=== PATIENT | female | born 1990 | race Caucasian/White ===

== ENCOUNTER 2021-08-01 09:00 | Day surgery (SDC) | payer OTHER ==
[2021-08-01] MEDS ORDERED: CEFAZOLIN 2 GM-D5W BAG** 2 GM/50 ML ML IV SCH (09:30)
[2021-08-01] MEDS ORDERED: Lactated Ringers 1,000 ML IV SCH (09:30)
[2021-08-01] MEDS ORDERED: CEFAZOLIN 2 GM-D5W BAG** 2 GM/50 ML ML IV ONE (09:54)
[2021-08-01] MEDS ORDERED: Lactated Ringers 1,000 ML IV ONE (09:54)
[2021-08-01] MEDS ORDERED: Versed 2 MG/2 ML Injection IV PRN (10:03)
[2021-08-01] MEDS ORDERED: SUBLIMAZE 100 MCG/2 ML ONE (10:21)
[2021-08-01] MEDS ORDERED: Xylocaine-Mpf 2% 5 Ml Vial ONE (10:21)
[2021-08-01] MEDS ORDERED: DIPRIVAN 200 MG/20 ML IV ONE (10:21)
[2021-08-01] MEDS ORDERED: Zofran 4 MG/2 ML VIAL ONE (10:21)
[2021-08-01] MEDS ORDERED: Decadron 4 MG INJ ONE (10:21)
[2021-08-01] MEDS ORDERED: TRANDATE 20 MG/4 ML SYRINGE IV ONE (10:44)
[2021-08-01] MEDS ORDERED: APRESOLINE 20 MG/ML INJ IV ONE (11:45)
[2021-08-01 12:14] VITALS: BP 150/108; PULSE 76; O2SAT 98
--- NOTE | 2021-08-02 07:42 | OP ---
SURGERY DATE/TIME: 08/01/2021 1029 PREOPERATIVE DIAGNOSIS: Abnormal uterine bleeding. POSTOPERATIVE DIAGNOSIS: Abnormal uterine bleeding. PROCEDURE: Hysteroscopy D&C. SURGEON: Renato Gomez D.O. DESIGN PRINTING MACHINE SETTER: Kali Reilly polysomnography tech. ANESTHESIA: General. ESTIMATED BLOOD LOSS: Minimal. COMPLICATIONS: None. INDICATIONS: The risks, benefits, indications and alternatives of the procedure were reviewed with the patient prior to the procedure. The patient understood the risk of infection, bleeding, bowel injury, bladder injury, ureteral injury, uterine perforation, pelvic infection associated with the surgery and desires to have this surgery as a possible means to alleviate her current medical condition. DESCRIPTION OF PROCEDURE AND FINDINGS: At this point the patient is taken to the operating room, given general sedation, placed in dorsal lithotomy position, prepped and draped in the usual sterile fashion. A weighted speculum is then placed in the patient's vagina and the anterior lip of the cervix was grasped with a single tooth tenaculum. Endocervical dilators were advanced through the endocervical canal as a means to dilate the cervix and the uterus was sounded to approximately 9 cm. From this point, a 5 mm hysteroscope was then placed through the endocervical region where visualization of the endometrial lining appeared to be within normal limits with no gross abnormalities within the uterine cavity. From this point, the hysteroscope was removed and a curette was then placed into the fundus of the uterus and curettage performed in all quadrants of the uterus retrieving a mild amount of endometrial tissue. From this point, hemostasis was obtained. At this point, all instruments were removed from the patient's vaginal region. The patient was then taken out of dorsal lithotomy position, was taken out of anesthesia and was then taken to the recovery room in stable condition. All instruments and laps were accounted for x2.
== END 2021-08-01 12:15 | disposition home or self-care (01) ==
LOC: SDC 09:00
PROVIDERS: ATTEND Obstetrics & Gynecology
DX: N93.9 Abnormal uterine and vaginal bleeding, unspecified (principal)
CPT/HCPCS: 84703; J0360; J0690; J1100; J2250; J2405; J2704; J3010

== ENCOUNTER 2023-05-28 16:59 | Emergency (ER) | payer SELFPAY ==
[2023-05-28 18:21] VITALS: RESP 18; TEMP 98.5
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
[2023-05-28] MEDS: Zestril 10 MG PO STA (20:31)
[2023-05-28 20:40] VITALS: BP 152/108; PULSE 82
[2023-05-28 20:45] VITALS: O2SAT 100
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
== END 2023-05-28 20:51 | disposition home or self-care (01) ==
LOC: ED 16:59
DX: S16.1XXA Strain of muscle, fascia and tendon at neck level, initial encounter (principal); V49.40XA Driver injured in collision with unspecified motor vehicles in traffic accident, initial encounter; Z79.84 Long term (current) use of oral hypoglycemic drugs; Z79.899 Other long term (current) drug therapy; Z28.310 Unvaccinated for COVID-19; Z72.0 Tobacco use
CPT/HCPCS: 72125; 99285; A9270-GY